=== PATIENT | male | born 1940 | race Two or more races ===

== ENCOUNTER 2021-11-21 20:40 | Observation (INO) | payer MEDICARE, SELFPAY ==
--- NOTE | ~2021-11-21 | XR_ITS ---
EXAMINATION: XR ANKLE, LEFT CLINICAL INFORMATION: Wound lateral malleolus COMPARISON: None TECHNIQUE: AP, lateral, and mortise views of the left ankle. FINDINGS: Osseous alignment is anatomic. No acute fracture is seen. There is slight contour deformity of the distal fibula suggesting sequelae of healed old injury. There is mild soft tissue swelling at the ankle. Posterior and plantar calcaneal spurs are present, and overlying soft tissue swelling is noted. Degenerative changes are seen in the tarsal bones. XR/XR ankle LT 2V IMPRESSION: Mild soft tissue swelling at the ankle. No acute osseous findings identified. Soft tissue swelling at the heel.
--- NOTE | ~2021-11-21 | XR_ITS ---
EXAMINATION: XR CHEST CLINICAL INFORMATION: Leukocytosis COMPARISON: None TECHNIQUE: Frontal view of the chest was obtained. FINDINGS: There is mild elevation of the right hemidiaphragm. No focal consolidation is seen. No evidence of pneumothorax, pleural effusion, or pulmonary edema. Cardiac size is within normal limits. Calcification is present at the aortic arch. Sternal wires, mediastinal clips, and loop recorder are noted. Degenerative changes are present in the spine and shoulders. Partially visualized right humeral hardware. XR/XR chest 1V IMPRESSION: No acute cardiopulmonary findings.
[2021-11-21 20:44] VITALS: BP 114/52; BP 122/56; PULSE 72; PULSE 80; RESP 14; TEMP 36.6; O2SAT 98; O2SAT 99; BMI 21.6
--- NOTE | 2021-11-21 20:54 | ED_ITS ---
HPI - General Adult General Chief complaint: General Medical Stated complaint: Hyperglycemia Time Seen by Provider: 11/21/21 20:54 Source: patient, EMS and RN notes reviewed Mode of arrival: EMS Limitations: no limitations History of Present Illness HPI narrative: Patient is 1 years old came from detention discharge from [facility] to [facility] yesterday patient does have history of type 2 diabetes on insulin acute on chronic diastolic heart failure, hyperlipidemia, hypertension, atherosclerotic heart disease, dementia, hypothyroidism, TIA on Eliquis and insulin Lantus 42 units in the morning and during daytime sliding scale of insulin sent here because of the high blood sugar reading since morning more than 600 was given extra dose of 12 units of insulin prior to arrival patient has is chronic wound on the left leg which is healing at this time no fever no chills Related Data Allergies Allergy/AdvReac Type Severity Reaction Status Date / Time No Known Allergies Allergy Verified 11/21/21 20:56 Review of Systems Review of Systems: Yes all other systems are reviewed and are negative [facility] Past Medical History Attestation statement: The following information was validated with the patient. Medical History (Updated 11/22/21 @ 01:23 by Jong Hoover MD) Acute on chronic diastolic (congestive) heart failure Atrial fibrillation Dementia Hyperlipidemia Hypertension Hypothyroidism Type 2 diabetes mellitus Social History Social History Advance Directives: No Advance Directives Information Provided: No Physical Exam ED Vital Signs: Vital Signs - 24 hr 11/21/21 20:44 Temperature 97.9 F Pulse Rate 72 Respiratory Rate 14 Blood Pressure 114/52 L Pulse Oximetry 99 Oxygen Delivery Method Room Air BMI result Body Mass Index 21.6 Appearance: Alert. Oriented X3. No acute distress. Eyes: PERRLA, No Nystagmus ENT: Pharynx normal. Oral Mucosa dry Neck: Normal inspection. Neck supple. CVS: Irregularly irregular heart beats. Pulses normal. Respiratory: No respiratory distress. Equal air entry bilateral, no wheezing/rales/rhonchi Abdomen: Soft and nontender. Bowel sounds are present, no mass palpable, no CVA tenderness Skin: Skin warm and dry. Normal skin color. Normal skin turgor. Extremities: No lower extremity edema. No calf tenderness Healing wound on the dorsum of the left foot and left lateral malleolus Neuro: Oriented X 3. No motor deficit. No sensory deficit.No cerebellar signs , cranial nerves II-XII intact Extrem Other: Medical Decision Making MDM Narrative Medical decision making narrative: 0100 Patient type 2 diabetic on insulin also on prednisone for giant cell arteritis for last few days since then patient has been having blood sugar out of control patient initial blood glucose was more than 600 mg patient is feeling weak and tired and thirsty and urinating a lot no abdominal pain no fever chills. Case discussed with patient's family patient had Gram-negative bacteria which grew Pseudomonas last month at [facility] and treated with IV antibiotics aztreonam liquid not find the source of bacteremia. Patient does have lactic acidosis after arrival 3.3 likely from dehydration secondary to diabetes will give cefepime 2 g IV prophylactically until we know blood culture. Plan to admit patient received IV antibiotics and IV fluids more than 30 cc/kilogram Lab Data Lab results reviewed: Yes I reviewed the patient's lab results. Result diagrams: 11/21/21 21:09 11/22/21 00:04 Labs: Lab Results 11/21/21 11/21/21 11/21/21 Range/Units 20:43 21:09 21:09 WBC 13.3 H (4.8-10.8) X10*3/uL RBC 3.74 L (4.60-5.80) X10*6/uL Hgb 10.8 L (14.0-18.0) g/dl Hct 33.3 L (42.0-52.0) % MCV 89.0 (80.0-98.0) fL MCH 28.9 (27.0-33.0) pg MCHC 32.4 (31.0-36.0) g/dl RDW 14.3 (11.0-16.0) % Plt Count 292 (160-400) X10*3/uL MPV 9.4 (9.4-12.4) fL Immature Gran % (Auto) 3.8 H (0.0-0.4) % Neut % (Auto) 80.5 H (45-73) % Lymph % (Auto) 10.8 L (20-40) % [place] % (Auto) 4.8 (2-11) % Eos % (Auto) 0.0 (0-4) % Baso % (Auto) 0.1 (0-2) % Lymph # (Auto) 1.4 (1.2-4.9) X10*3/uL [place] # (Auto) 0.6 (0.1-1.2) X10*3/uL Eos # (Auto) 0.0 (0.0-0.4) X10*3/uL Baso # (Auto) 0.0 (0.0-0.2) X10*3/uL Abs Immat Gran (auto) 0.50 H (0.00-0.03) X10*3/uL Absolute Neuts (auto) 10.7 H (2.0-8.3) x10*3/uL Absolute Nucleated RBC 0.000 (0.0-0.012) X10*3/uL Nucleated RBC % (auto) 0.0 (0.0-0.2) /100WBC Sodium 133 L (135-145) mmol/L Potassium 4.0 (3.3-5.1) mmol/L Chloride 95 L (96-108) mmol/L Carbon Dioxide 30 H (22-29) mmol/L Anion Gap 12 (12-20) BUN 27 H (9-16) mg/dL Creatinine 1.04 (0.5-1.4) mg/dL Estim Creat Clear Calc 52.0 Estimated GFR > 60 POC Glucose 524 H* (60-115) mg/dL Random Glucose 605 H* (60-115) mg/dL Lactic Acid (0.5-2.0) mmol/L Lactic Acid F/U @ 2Hr (0.5-2.0) mmol/L Calcium 7.9 L (8.4-10.2) mg/dL Total Bilirubin 0.3 (0.0-1.0) mg/dL AST 32 (5-37) U/L ALT 33 (0-40) U/L Alkaline Phosphatase 236 H (39-117) U/L Total Protein 4.7 L (6.5-8.0) g/dL Albumin 2.4 L (3.5-5.0) g/dL Urine Color Urine Appearance Urine pH (5.0-8.0) Ur Specific [place] (1.005-1.025) Urine Protein (NEG-TRACE) MG/DL Urine Glucose (UA) (NEG) MG/DL Urine Ketones (NEG) MG/DL Urine Blood (NEG) Urine Nitrite (NEG) Ur Leukocyte Esterase (NEG) Urine RBC (0) /HPF Urine WBC (0-4) /HPF Ur Squamous Epith Cells /LPF Urine Bacteria /LPF Urine Mucus /LPF Acetone, Qual (Negative) COVID-19 ([facility]) (Negative) COVID-19 Clin Com 11/21/21 11/21/21 11/21/21 Range/Units 21:09 21:09 21:09 WBC (4.8-10.8) X10*3/uL RBC (4.60-5.80) X10*6/uL Hgb (14.0-18.0) g/dl Hct (42.0-52.0) % MCV (80.0-98.0) fL MCH (27.0-33.0) pg MCHC (31.0-36.0) g/dl RDW (11.0-16.0) % Plt Count (160-400) X10*3/uL MPV (9.4-12.4) fL Immature Gran % (Auto) (0.0-0.4) % Neut % (Auto) (45-73) % Lymph % (Auto) (20-40) % [place] % (Auto) (2-11) % Eos % (Auto) (0-4) % Baso % (Auto) (0-2) % Lymph # (Auto) (1.2-4.9) X10*3/uL [place] # (Auto) (0.1-1.2) X10*3/uL Eos # (Auto) (0.0-0.4) X10*3/uL Baso # (Auto) (0.0-0.2) X10*3/uL Abs Immat Gran (auto) (0.00-0.03) X10*3/uL Absolute Neuts (auto) (2.0-8.3) x10*3/uL Absolute Nucleated RBC (0.0-0.012) X10*3/uL Nucleated RBC % (auto) (0.0-0.2) /100WBC Sodium (135-145) mmol/L Potassium (3.3-5.1) mmol/L Chloride (96-108) mmol/L Carbon Dioxide (22-29) mmol/L Anion Gap (12-20) BUN (9-16) mg/dL Creatinine (0.5-1.4) mg/dL Estim Creat Clear Calc Estimated GFR POC Glucose (60-115) mg/dL Random Glucose (60-115) mg/dL Lactic Acid 3.3 H* (0.5-2.0) mmol/L Lactic Acid F/U @ 2Hr (0.5-2.0) mmol/L Calcium (8.4-10.2) mg/dL Total Bilirubin (0.0-1.0) mg/dL AST (5-37) U/L ALT (0-40) U/L Alkaline Phosphatase (39-117) U/L Total Protein (6.5-8.0) g/dL Albumin (3.5-5.0) g/dL Urine Color Urine Appearance Urine pH (5.0-8.0) Ur Specific [place] (1.005-1.025) Urine Protein (NEG-TRACE) MG/DL Urine Glucose (UA) (NEG) MG/DL Urine Ketones (NEG) MG/DL Urine Blood (NEG) Urine Nitrite (NEG) Ur Leukocyte Esterase (NEG) Urine RBC (0) /HPF Urine WBC (0-4) /HPF Ur Squamous Epith Cells /LPF Urine Bacteria /LPF Urine Mucus /LPF Acetone, Qual Negative (Negative) COVID-19 ([place]) Negative (Negative) COVID-19 Clin Com See Note 11/21/21 11/21/21 11/21/21 Range/Units 21:35 22:53 23:53 WBC (4.8-10.8) X10*3/uL RBC (4.60-5.80) X10*6/uL Hgb (14.0-18.0) g/dl Hct (42.0-52.0) % MCV (80.0-98.0) fL MCH (27.0-33.0) pg MCHC (31.0-36.0) g/dl RDW (11.0-16.0) % Plt Count (160-400) X10*3/uL MPV (9.4-12.4) fL Immature Gran % (Auto) (0.0-0.4) % Neut % (Auto) (45-73) % Lymph % (Auto) (20-40) % [place] % (Auto) (2-11) % Eos % (Auto) (0-4) % Baso % (Auto) (0-2) % Lymph # (Auto) (1.2-4.9) X10*3/uL [place] # (Auto) (0.1-1.2) X10*3/uL Eos # (Auto) (0.0-0.4) X10*3/uL Baso # (Auto) (0.0-0.2) X10*3/uL Abs Immat Gran (auto) (0.00-0.03) X10*3/uL Absolute Neuts (auto) (2.0-8.3) x10*3/uL Absolute Nucleated RBC (0.0-0.012) X10*3/uL Nucleated RBC % (auto) (0.0-0.2) /100WBC Sodium (135-145) mmol/L Potassium (3.3-5.1) mmol/L Chloride (96-108) mmol/L Carbon Dioxide (22-29) mmol/L Anion Gap (12-20) BUN (9-16) mg/dL Creatinine (0.5-1.4) mg/dL Estim Creat Clear Calc Estimated GFR POC Glucose 465 H* 465 H* 459 H* (60-115) mg/dL Random Glucose (60-115) mg/dL Lactic Acid (0.5-2.0) mmol/L Lactic Acid F/U @ 2Hr (0.5-2.0) mmol/L Calcium (8.4-10.2) mg/dL Total Bilirubin (0.0-1.0) mg/dL AST (5-37) U/L ALT (0-40) U/L Alkaline Phosphatase (39-117) U/L Total Protein (6.5-8.0) g/dL Albumin (3.5-5.0) g/dL Urine Color Urine Appearance Urine pH (5.0-8.0) Ur Specific [place] (1.005-1.025) Urine Protein (NEG-TRACE) MG/DL Urine Glucose (UA) (NEG) MG/DL Urine Ketones (NEG) MG/DL Urine Blood (NEG) Urine Nitrite (NEG) Ur Leukocyte Esterase (NEG) Urine RBC (0) /HPF Urine WBC (0-4) /HPF Ur Squamous Epith Cells /LPF Urine Bacteria /LPF Urine Mucus /LPF Acetone, Qual (Negative) COVID-19 ([facility]) (Negative) COVID-19 Clin Com 11/22/21 11/22/21 11/22/21 Range/Units 00:04 00:04 00:04 WBC (4.8-10.8) X10*3/uL RBC (4.60-5.80) X10*6/uL Hgb (14.0-18.0) g/dl Hct (42.0-52.0) % MCV (80.0-98.0) fL MCH (27.0-33.0) pg MCHC (31.0-36.0) g/dl RDW (11.0-16.0) % Plt Count (160-400) X10*3/uL MPV (9.4-12.4) fL Immature Gran % (Auto) (0.0-0.4) % Neut % (Auto) (45-73) % Lymph % (Auto) (20-40) % [place] % (Auto) (2-11) % Eos % (Auto) (0-4) % Baso % (Auto) (0-2) % Lymph # (Auto) (1.2-4.9) X10*3/uL [place] # (Auto) (0.1-1.2) X10*3/uL Eos # (Auto) (0.0-0.4) X10*3/uL Baso # (Auto) (0.0-0.2) X10*3/uL Abs Immat Gran (auto) (0.00-0.03) X10*3/uL Absolute Neuts (auto) (2.0-8.3) x10*3/uL Absolute Nucleated RBC (0.0-0.012) X10*3/uL Nucleated RBC % (auto) (0.0-0.2) /100WBC Sodium 136 (135-145) mmol/L Potassium 4.0 (3.3-5.1) mmol/L Chloride 100 (96-108) mmol/L Carbon Dioxide 28 (22-29) mmol/L Anion Gap 12 (12-20) BUN 25 H (9-16) mg/dL Creatinine 0.87 (0.5-1.4) mg/dL Estim Creat Clear Calc 62.1 Estimated GFR > 60 POC Glucose (60-115) mg/dL Random Glucose 454 H* (60-115) mg/dL Lactic Acid (0.5-2.0) mmol/L Lactic Acid F/U @ 2Hr 2.5 H* (0.5-2.0) mmol/L Calcium 7.7 L (8.4-10.2) mg/dL Total Bilirubin (0.0-1.0) mg/dL AST (5-37) U/L ALT (0-40) U/L Alkaline Phosphatase (39-117) U/L Total Protein (6.5-8.0) g/dL Albumin (3.5-5.0) g/dL Urine Color YELLOW Urine Appearance CLEAR Urine pH 6.5 (5.0-8.0) Ur Specific [place] 1.010 (1.005-1.025) Urine Protein NEG (NEG-TRACE) MG/DL Urine Glucose (UA) >=1000 H (NEG) MG/DL Urine Ketones NEG (NEG) MG/DL Urine Blood 2+ H (NEG) Urine Nitrite NEG (NEG) Ur Leukocyte Esterase NEG (NEG) Urine RBC 0-2 (0) /HPF Urine WBC 0-2 (0-4) /HPF Ur Squamous Epith Cells TRACE /LPF Urine Bacteria NONE /LPF Urine Mucus TRACE /LPF Acetone, Qual (Negative) COVID-19 ([facility]) (Negative) COVID-19 Clin Com Critical Care Time Critical Care Time Critical Care Time: Yes Total Critical Care Time: 55 Attestation: I spent 55 minutes of critical care, with interventions, assessments, speaking to patient, consultants, and family. Discharge Plan Discharge Clinical Impression: Acute hyperglycemia, Acidosis, lactic Patient Disposition: Admitted As Inpatient
--- NOTE | 2021-11-21 20:58 | ECG_ITS ---
Test Reason : weakness Blood Pressure : / mmHG Vent. Rate : 074 BPM Atrial Rate : 000 BPM P-R Int : 000 ms QRS Dur : 078 ms QT Int : 450 ms P-R-T Axes : 000 080 089 degrees QTc Int : 499 ms Atrial fibrillation T wave abnormality, consider anterior ischemia Prolonged QT Abnormal ECG No previous ECGs available Referred By: Jong Hoover Electronically Signed By:Jose Luis Andrea
[2021-11-21] MEDS: 0.9 % Sodium Chloride 1,000 ML 999 ML IV ×2 (21:14→21:51)
[2021-11-21 21:15] LABS: MANUAL DIFF FLAG NO
[2021-11-21 21:17] LABS: Basophils Percent Auto 0.1 % (0-2); Hematocrit 33.3 % (42.0-52.0); Hemoglobin 10.8 g/dl (14.0-18.0); Imm Gran Pct Auto 3.8 % (0.0-0.4); Lymphocytes Absolute Auto 1.4 X10*3/uL (1.2-4.9); Lymphocytes Percent Auto 10.8 % (20-40); Mean Corpuscular HGB Conc 32.4 g/dl (31.0-36.0); Mean Corpuscular Hemoglobin 28.9 pg (27.0-33.0); Mean Platelet Volume 9.4 fL (9.4-12.4); Monocytes Absolute Auto 0.6 X10*3/uL (0.1-1.2); Monocytes Percent Auto 4.8 % (2-11); Neutrophils Absolute Auto 10.7 x10*3/uL (2.0-8.3); Neutrophils Percent Auto 80.5 % (45-73); Platelet Count 292 X10*3/uL (160-400); Red Blood Count 3.74 X10*6/uL (4.60-5.80); Red Cell Distribution Width 14.3 % (11.0-16.0); White Blood Count 13.3 X10*3/uL (4.8-10.8)
[2021-11-21 21:36] LABS: Lactic Acid 3.3 mmol/L (0.5-2.0)
[2021-11-21 21:37] LABS: Acetone, serum QL Negative (Negative)
[2021-11-21 21:38] LABS: Glucose, Whole Blood 524 mg/dL (60-115)
[2021-11-21 21:39] LABS: Glucose, Whole Blood 465 mg/dL (60-115)
[2021-11-21 21:43] LABS: Alanine Aminotransferase 33 U/L (0-40); Albumin Level 2.4 g/dL (3.5-5.0); Alkaline Phosphatase 236 U/L (39-117); Anion Gap 12 (12-20); Aspartate Amino Transferase 32 U/L (5-37); Bilirubin Total 0.3 mg/dL (0.0-1.0); Blood Urea Nitrogen 27 mg/dL (9-16); Calcium 7.9 mg/dL (8.4-10.2); Carbon Dioxide 30 mmol/L (22-29); Chloride 95 mmol/L (96-108); Estimated Glomerular Filt Rate > 60; Glucose Random 605 mg/dL (60-115); Sodium 133 mmol/L (135-145); Total Protein 4.7 g/dL (6.5-8.0)
[2021-11-21] MEDS: Insulin Lispro 100 UNIT/ML 3 ML VIAL 10 UNIT SUBCUT (21:47)
[2021-11-21 21:48] LABS: COVID-19 Test Negative (Negative)
[2021-11-21] MEDS: Piperacillin Sodium/Tazobactam 3.375 GM in 0.9 % Sodium Chloride 50 ML IV (22:33)
[2021-11-21 22:59] LABS: Glucose, Whole Blood 465 mg/dL (60-115)
[2021-11-21] MEDS: Insulin Lispro 100 UNIT/ML 3 ML VIAL 12 UNIT SUBCUT (23:10)
[2021-11-21 23:15] LABS: Reflex Lactate? Lactic Acid Added
[2021-11-21] MEDS: Insulin Glargine,Hum.rec.anlog 100 UNIT/ML 10 ML VIAL 20 UNIT SUBCUT (23:54)
[2021-11-22 00:20] LABS: Appearance Urine CLEAR; Color Urine YELLOW; Glucose Urine UA >=1000 MG/DL (NEG); Leukocyte Esterase Urine NEG (NEG); Nitrite Urine NEG (NEG); PH 6.5 (5.0-8.0); UACC Culture Trigger NO; Urine Blood 2+ (NEG); Urine Ketones NEG (NEG); Urine Protein NEG (NEG-TRACE)
[2021-11-22 00:34] LABS: Glucose, Whole Blood 459 mg/dL (60-115)
[2021-11-22 00:35] LABS: ~Lactic Acid-LAB USE ONLY 2.5 mmol/L (0.5-2.0)
[2021-11-22 00:36] LABS: Anion Gap 12 (12-20); Blood Urea Nitrogen 25 mg/dL (9-16); Calcium 7.7 mg/dL (8.4-10.2); Carbon Dioxide 28 mmol/L (22-29); Chloride 100 mmol/L (96-108); Creatinine Clr Calc Pharmacy 62.1; Estimated Glomerular Filt Rate > 60; Glucose Random 454 mg/dL (60-115); Sodium 136 mmol/L (135-145)
[2021-11-22] MEDS: Insulin Lispro 100 UNIT/ML 3 ML VIAL 10 UNIT SUBCUT ×2 (00:45→01:06)
[2021-11-22] MEDS: 0.9 % Sodium Chloride 1,000 ML 999 ML IV (00:46)
[2021-11-22 00:48] LABS: Mucus Urine TRACE /LPF; RBC Urine 0-2 /HPF (0); Squamous Epithelial Cell Urine TRACE /LPF; WBC Urine 0-2 /HPF (0-4)
[2021-11-22 02:09] VITALS: BP 132/71; PULSE 83; RESP 17; TEMP 36.1; O2SAT 96
[2021-11-22 02:09] LABS: Reflex Lactate? 2 Y
[2021-11-22] MEDS: cefEPime HCl 2 GM in 0.9 % Sodium Chloride 50 ML IV (02:59)
--- NOTE | 2021-11-22 03:46 | P.HPHOSP_ITS ---
History of Present Illness Date of Service: 11/22/21 Chief Complaint: Hyperglycemia 81-year-old male with a past medical history of hypertension, hyperlipidemia, diabetes, AFib on Eliquis, CHF, peripheral vascular disease, recent admission to the [facility] with Pseudomonas bacteremia; discharged to the rehab on 11/20/21; presented to the hospital from the rehab today with a chief complaint of elevated blood sugars. Patient denies any polyuria or polydipsia. Reports he is feeling hungry. Mentions that he was recently diagnosed with giant cell arteritis and has been on prednisone taper. Patient denies any chest pain palpitations lightheadedness or dizziness. Denies any fever chills cough. Denies any leg swelling. Mentions is has leg ulcer noted during the admission at the [facility] but seems to be improving. Spoke to the patient's daughter and patient's as well. Review of all other systems is negative except mentioned above ER course: Per ER team patient on presentation noted to have elevated fingerstick glucose in 500s; not in DKA; given 3 L of IV fluids and lispro as well as Lantus. Also noted to have elevated lactate. Given recent infection with Pseudomonas bacteremia patient was empirically covered with cefepime. Admitted to the hospital for further management [facility] Medical History (Updated 12/06/21 @ 21:55 by Froilan Abraham MD) Acute on chronic diastolic (congestive) heart failure Atrial fibrillation Dementia Hyperlipidemia Hypertension Hypothyroidism Type 2 diabetes mellitus Social History Patient Tobacco Use Status: Never used Tobacco Second Hand Smoke Exposure: No service: No Current occupational status: retired Meds Allergies Allergy/AdvReac Type Severity Reaction Status Date / Time Penicillins [PCN] Allergy Mild Rash Verified 11/22/21 21:21 Cephalosporins Allergy Rash Verified 11/22/21 21:24 Home Medications Medication Instructions Recorded Confirmed Last Taken Type apixaban 5 mg tablet (Eliquis) 1 tab PO BID 11/22/21 11/22/21 Unknown History citalopram 40 mg tablet 1 tab PO DAILY 11/22/21 11/22/21 11/21/21 08:00 History diltiazem HCl 180 mg 180 mg PO QAM 11/22/21 11/22/21 11/21/21 09:00 History capsule,extended release 24 hr (Cardizem CD) donepezil 5 mg tablet 1 tab PO BEDTIME 11/22/21 11/22/21 Unknown History levothyroxine 75 mcg tablet 75 mcg PO DAILY 11/22/21 11/22/21 Unknown History metoprolol succinate 25 mg 37.5 mg PO DAILY 11/22/21 11/22/21 Unknown History tablet,extended release 24 hr pravastatin 20 mg tablet 1 tab PO BEDTIME 11/22/21 11/22/21 Unknown History prednisone 20 mg tablet 40 mg PO DAILY 11/22/21 11/22/21 Unknown History Physical Exam Vital Signs and Narrative: Vital Signs: Last Vital Signs Temp 96.9 F 11/22/21 02:09 Pulse 83 11/22/21 02:09 Resp 17 11/22/21 02:09 BP 132/71 11/22/21 02:09 Pulse Ox 96 11/22/21 02:09 O2 Del Method 11/22/21 02:09 BMI result Body Mass Index 21.6 Gen: Appears be in no acute distress HEENT: NCAT, Moist mucosa. Pulmonary: Vesicular breath sounds, fair air entry CVS: Normal S1-S2 Abdomen: BS+, Soft, Nontender Extremities: Warm well perfused; foot ulcer has dressing in pairs. Picture shown below Neuro: Alert and awake. Grossly nonfocal Results Labs CBC and Chem 7: 11/22/21 04:27 11/24/21 07:53 Labs: Laboratory Results - last 24 hr 11/21/21 11/21/21 11/21/21 20:43 21:09 21:09 MCV 89.0 MCH 28.9 MCHC 32.4 RDW 14.3 Plt Count 292 MPV 9.4 Immature Gran % (Auto) 3.8 H Neut % (Auto) 80.5 H Lymph % (Auto) 10.8 L [place] % (Auto) 4.8 Eos % (Auto) 0.0 Baso % (Auto) 0.1 Lymph # (Auto) 1.4 [place] # (Auto) 0.6 Eos # (Auto) 0.0 Baso # (Auto) 0.0 Abs Immat Gran (auto) 0.50 H Absolute Neuts (auto) 10.7 H Absolute Nucleated RBC 0.000 Nucleated RBC % (auto) 0.0 Anion Gap 12 Estim Creat Clear Calc 52.0 Estimated GFR > 60 POC Glucose 524 H* Random Glucose 605 H* Lactic Acid Lactic Acid F/U @ 2Hr Calcium 7.9 L Total Bilirubin 0.3 AST 32 ALT 33 Alkaline Phosphatase 236 H Total Protein 4.7 L Albumin 2.4 L Urine Color Urine Appearance Urine pH Ur Specific [place] Urine Protein Urine Glucose (UA) Urine Ketones Urine Blood Urine Nitrite Ur Leukocyte Esterase Urine RBC Urine WBC Ur Squamous Epith Cells Urine Bacteria Urine Mucus Acetone, Qual COVID-19 ([facility]) COVID-19 Clin Com 11/21/21 11/21/21 11/21/21 21:09 21:09 21:09 MCV MCH MCHC RDW Plt Count MPV Immature Gran % (Auto) Neut % (Auto) Lymph % (Auto) [place] % (Auto) Eos % (Auto) Baso % (Auto) Lymph # (Auto) [place] # (Auto) Eos # (Auto) Baso # (Auto) Abs Immat Gran (auto) Absolute Neuts (auto) Absolute Nucleated RBC Nucleated RBC % (auto) Anion Gap Estim Creat Clear Calc Estimated GFR POC Glucose Random Glucose Lactic Acid 3.3 H* Lactic Acid F/U @ 2Hr Calcium Total Bilirubin AST ALT Alkaline Phosphatase Total Protein Albumin Urine Color Urine Appearance Urine pH Ur Specific [place] Urine Protein Urine Glucose (UA) Urine Ketones Urine Blood Urine Nitrite Ur Leukocyte Esterase Urine RBC Urine WBC Ur Squamous Epith Cells Urine Bacteria Urine Mucus Acetone, Qual Negative COVID-19 ([place]) Negative COVID-19 Clin Com See Note 11/21/21 11/21/21 11/21/21 21:35 22:53 23:53 MCV MCH MCHC RDW Plt Count MPV Immature Gran % (Auto) Neut % (Auto) Lymph % (Auto) [place] % (Auto) Eos % (Auto) Baso % (Auto) Lymph # (Auto) [place] # (Auto) Eos # (Auto) Baso # (Auto) Abs Immat Gran (auto) Absolute Neuts (auto) Absolute Nucleated RBC Nucleated RBC % (auto) Anion Gap Estim Creat Clear Calc Estimated GFR POC Glucose 465 H* 465 H* 459 H* Random Glucose Lactic Acid Lactic Acid F/U @ 2Hr Calcium Total Bilirubin AST ALT Alkaline Phosphatase Total Protein Albumin Urine Color Urine Appearance Urine pH Ur Specific [place] Urine Protein Urine Glucose (UA) Urine Ketones Urine Blood Urine Nitrite Ur Leukocyte Esterase Urine RBC Urine WBC Ur Squamous Epith Cells Urine Bacteria Urine Mucus Acetone, Qual COVID-19 ([place]) COVID-19 Clin Com 11/22/21 11/22/21 11/22/21 00:04 00:04 00:04 MCV MCH MCHC RDW Plt Count MPV Immature Gran % (Auto) Neut % (Auto) Lymph % (Auto) [place] % (Auto) Eos % (Auto) Baso % (Auto) Lymph # (Auto) [place] # (Auto) Eos # (Auto) Baso # (Auto) Abs Immat Gran (auto) Absolute Neuts (auto) Absolute Nucleated RBC Nucleated RBC % (auto) Anion Gap 12 Estim Creat Clear Calc 62.1 Estimated GFR > 60 POC Glucose Random Glucose 454 H* Lactic Acid Lactic Acid F/U @ 2Hr 2.5 H* Calcium 7.7 L Total Bilirubin AST ALT Alkaline Phosphatase Total Protein Albumin Urine Color YELLOW Urine Appearance CLEAR Urine pH 6.5 Ur Specific [place] 1.010 Urine Protein NEG Urine Glucose (UA) >=1000 H Urine Ketones NEG Urine Blood 2+ H Urine Nitrite NEG Ur Leukocyte Esterase NEG Urine RBC 0-2 Urine WBC 0-2 Ur Squamous Epith Cells TRACE Urine Bacteria NONE Urine Mucus TRACE Acetone, Qual COVID-19 ([place]) COVID-19 Clin Com Imaging Radiologist's Impressions: Impressions Ankle X-Ray 11/21/21 22:54 IMPRESSION: Mild soft tissue swelling at the ankle. No acute osseous findings identified. Soft tissue swelling at the heel. Chest X-Ray 11/22/21 01:33 IMPRESSION: No acute cardiopulmonary findings. Assessment and Plan (1) Hyperglycemia: Status: Acute Plan 81-year-old male with a past medical history of hypertension, hyperlipidemia, di abetes, AFib on Eliquis, CHF, peripheral vascular disease, recent admission to the [facility] with Pseudomonas bacteremia; discharged to the rehab on 11/20/21; presented to the hospital from the rehab today with a chief complaint of elevated blood sugars. Diabetes/Hyperglycemia: Patient blood sugar on presentation was 605. Not in DKA. Received 3 L of IV fl uids and 30 units of lispro along with 20 units of Lantus. Patient fingerstick glucose improved to 4 0s. Will keep the patient on Lantus 40 units plus insulin sliding scale. Monitor fingerstick glucose and adjust insulins as needed. Recent Pseudomonas Bacteremia/Foot Ulcer: Patient almost finished 14 days of antibiotics. Discharged yesterday to [facility] with 2 more days of Levaquin. Foot ulcer is new after admission to [facility]. but currently has lactic acidosis and mild leukocytosis; c/w Empiric Cefepime untill repeat cultures are back. Wound care consult Gain cell arteritis: pt on long Prednisone taper. On prednisone 40mg currently. Follows with Neurology and toolroom attendant. Patient has been on the prednisone since October. Currently patient having hyperglycemia/increased appetite/recent infection-will defer to the day team to touch base with the patient's toolroom attendant to consider tapering prednisone more quickly, if appropriate. PVD: left leg angiogram was done at [facility] on last thursday. Requested Records. pt on eliquis. Afib: c/w metoprolol/Diltiazem/eliquis CHF: recent Echo- Grade 1 diastolic dysfunction, EF 55%; patient was given 3 L of normal saline in the ER secondary to hyperglycemia. Per family patient was not on a Lasix prior to the admission to the [facility]. In the [facility] patient had AFib with RVR as well as acute CHF exacerbation with peripheral edema. Patient received IV Lasix and subsequently transitioned to p.o. Lasix. Currently patient appears to be euvolemic. Will give the patient on Lasix p.r.n. DVT prophylaxis: Patient on Eliquis Code status: Full code. pt has MOLST form. Spoke to the patient's daughters Elisha (hospitalist) [phone]. Quality Stroke Does the patient have a stroke diagnosis?: No VTE Prior VTE?: No VTE Risk Level:: Medical - moderate - high VTE Device Contraindication: Treatment Not Indicated VTE Drug Contraindication: N/A - Med Ordered
[2021-11-22 04:33] LABS: MANUAL DIFF FLAG NO
[2021-11-22 04:35] LABS: Basophils Percent Auto 0.1 % (0-2); Eosinophils Percent Auto 0.1 % (0-4); Hemoglobin 10.9 g/dl (14.0-18.0); Imm Gran Abs Auto 0.68 X10*3/uL (0.00-0.03); Imm Gran Pct Auto 4.1 % (0.0-0.4); Lymphocytes Absolute Auto 2.2 X10*3/uL (1.2-4.9); Lymphocytes Percent Auto 13.2 % (20-40); Mean Corpuscular HGB Conc 32.1 g/dl (31.0-36.0); Mean Corpuscular Hemoglobin 29.1 pg (27.0-33.0); Mean Corpuscular Volume 90.9 fL (80.0-98.0); Mean Platelet Volume 9.1 fL (9.4-12.4); Monocytes Absolute Auto 1.1 X10*3/uL (0.1-1.2); Monocytes Percent Auto 6.4 % (2-11); Neutrophils Absolute Auto 12.7 x10*3/uL (2.0-8.3); Neutrophils Percent Auto 76.1 % (45-73); Platelet Count 311 X10*3/uL (160-400); Red Blood Count 3.74 X10*6/uL (4.60-5.80); Red Cell Distribution Width 14.4 % (11.0-16.0); White Blood Count 16.6 X10*3/uL (4.8-10.8)
[2021-11-22 04:44] LABS: ~Lactic Acid-LAB USE ONLY 1.9 mmol/L (0.5-2.0)
[2021-11-22 04:55] LABS: Anion Gap 9 (12-20); Blood Urea Nitrogen 23 mg/dL (9-16); Calcium 7.7 mg/dL (8.4-10.2); Carbon Dioxide 31 mmol/L (22-29); Chloride 102 mmol/L (96-108); Creatinine Clr Calc Pharmacy 80.7; Estimated Glomerular Filt Rate > 60; Glucose Random 111 mg/dL (60-115); Potassium 4.1 mmol/L (3.3-5.1); Sodium 138 mmol/L (135-145)
[2021-11-22 05:10] LABS: Glucose, Whole Blood 403 mg/dL (60-115)
[2021-11-22 05:10] LABS: Glucose, Whole Blood 280 mg/dL (60-115)
[2021-11-22 05:10] LABS: Glucose, Whole Blood 231 mg/dL (60-115)
[2021-11-22 05:10] LABS: Glucose, Whole Blood 199 mg/dL (60-115)
[2021-11-22 05:10] LABS: Glucose, Whole Blood 417 mg/dL (60-115)
[2021-11-22 05:10] LABS: Glucose, Whole Blood 190 mg/dL (60-115)
[2021-11-22 06:29] VITALS: BP 134/55; PULSE 85; RESP 14; TEMP 36.8; O2SAT 97
[2021-11-22 07:30] LABS: Glucose, Whole Blood 146 mg/dL (60-115)
[2021-11-22 07:30] LABS: Glucose, Whole Blood 161 mg/dL (60-115)
--- NOTE | 2021-11-22 08:08 | PHA.MEDREC ---
Pharmacy Consult ? Medication Reconciliation Pharmacy has completed the medication reconciliation.
[2021-11-22] MEDS: predniSONE 20 MG TABLET 40 MG PO (09:32)
[2021-11-22] MEDS: Metoprolol Succinate ER 12.5 MG HALFTAB.ER.24H PO (09:32)
[2021-11-22] MEDS: dilTIAZem HCL CD 180 MG CAP.ER.24H PO (09:32)
[2021-11-22] MEDS: Levothyroxine Sodium 75 MCG TABLET PO (09:32)
[2021-11-22] MEDS: 0.9 % Sodium Chloride Flush 3 ML SYRINGE IVFLUSH ×2 (09:32→17:17)
[2021-11-22] MEDS: Metoprolol Succinate ER 25 MG TAB.ER.24H PO (09:32)
[2021-11-22] MEDS: Escitalopram Oxalate 20 MG TABLET PO (09:32)
--- NOTE | 2021-11-22 09:32 | MHC.CM.PN ---
Patient has Dementia; CM spoke with /HCP/Suze @ [phone]. [place] [facility] [facility] and the goal is for him to return there when medically stable. CM has initiated and will follow for dc planning. Patient lives in 2 story house with his and he uses a cane for outdoor travel. Patient gilbert received Pfizer/Covid vax X4 and his PCP is DR. Rocha. [facility] staff communicate with Patient's Daughter/Physician/Gildardo @ [phone] first and her second.
[2021-11-22] MEDS: Donepezil HCl 5 MG TABLET PO (09:33)
[2021-11-22] MEDS: Apixaban 5 MG TABLET PO ×2 (09:33→21:13)
[2021-11-22 09:36] VITALS: BP 142/58; PULSE 97; RESP 16; O2SAT 98
[2021-11-22 13:24] LABS: Glucose, Whole Blood 93 mg/dL (60-115)
--- NOTE | 2021-11-22 13:34 | MHC.CM.PN ---
CM spoke extensively with Patient's /Suze at [phone] and Daughter/Sonaly @ [phone] regarding Patient's OBSERVATION status(Original is being mailed to [facility] and a copy will be placed on the chart). The goal is for Patient to return to [facility] on 11/25/2021, pending PT eval and [facility] authorization. CM will follow.
[2021-11-22] MEDS: cefEPime HCl 1 GM in 0.9 % Sodium Chloride 50 ML IV ×2 (17:17→21:54)
[2021-11-22 19:11] LABS: Glucose, Whole Blood 187 mg/dL (60-115)
[2021-11-22] MEDS: Insulin Lispro 100 UNIT/ML 3 ML VIAL SUBCUT ×2 (19:37→21:14)
[2021-11-22 19:38] VITALS: BP 149/74; PULSE 90; RESP 13
--- NOTE | 2021-11-22 19:39 | PC.NURSE ---
pt a&ox3, vss - pt remains hypertensive, medicated per provider order, denies pain at this time.
[2021-11-22 21:04] LABS: Glucose, Whole Blood 251 mg/dL (60-115)
[2021-11-22] MEDS: Pravastatin Sodium 20 MG TABLET PO (21:13)
[2021-11-22 21:27] VITALS: BMI 21.6
[2021-11-22 22:07] VITALS: BP 136/75; PULSE 85; RESP 18; TEMP 36.4; O2SAT 93
[2021-11-23] VITALS (7 sets, daily range): BP systolic 106–167; BP diastolic 56–89; PULSE 86–103; RESP 16–18; TEMP 36–36.9; O2SAT 96–99
[2021-11-23] MEDS: Levothyroxine Sodium 75 MCG TABLET PO (05:49)
[2021-11-23] MEDS: cefEPime HCl 1 GM in 0.9 % Sodium Chloride 50 ML IV ×3 (05:49→20:16)
[2021-11-23 08:08] LABS: Glucose, Whole Blood 86 mg/dL (60-115)
[2021-11-23 09:22] LABS: Glucose, Whole Blood 107 mg/dL (60-115)
[2021-11-23] MEDS: Escitalopram Oxalate 20 MG TABLET PO (10:52)
[2021-11-23] MEDS: predniSONE 20 MG TABLET 40 MG PO (10:52)
[2021-11-23] MEDS: Metoprolol Succinate ER 12.5 MG HALFTAB.ER.24H PO (10:52)
[2021-11-23] MEDS: Donepezil HCl 5 MG TABLET PO (10:52)
[2021-11-23] MEDS: 0.9 % Sodium Chloride Flush 3 ML SYRINGE IVFLUSH ×3 (10:53→20:44)
[2021-11-23] MEDS: Metoprolol Succinate ER 25 MG TAB.ER.24H PO (10:53)
[2021-11-23] MEDS: Apixaban 5 MG TABLET PO ×2 (10:53→20:17)
[2021-11-23] MEDS: dilTIAZem HCL CD 180 MG CAP.ER.24H PO (10:53)
[2021-11-23] MEDS: Insulin Glargine,Hum.rec.anlog 100 UNIT/ML 10 ML VIAL 25 UNIT SUBCUT (10:55)
[2021-11-23] MEDS: Insulin Lispro 100 UNIT/ML 3 ML VIAL SUBCUT ×3 (11:49→20:35)
[2021-11-23 11:54] LABS: Glucose, Whole Blood 235 mg/dL (60-115)
--- NOTE | 2021-11-23 12:05 | P.PNIM_ITS ---
Subjective Subjective Date of Service: 11/24/21 Interval History: Resting comfortably offers no acute complaints head in an infant for night blood sugars stable, tolerating diet no nausea no vomiting denies leg discomfort, denies fever chills, no nausea, no vomiting no diarrhea. Review of Systems Review of Systems: Yes all other systems are reviewed and are negative Physical Exam Vital Signs: Vital Signs: Last Vital Signs Temp 97.6 F 11/23/21 11:21 Pulse 89 11/23/21 11:21 Resp 18 11/23/21 11:21 BP 112/67 11/23/21 11:21 Pulse Ox 97 11/23/21 11:21 O2 Del Method 11/23/21 11:21 BMI result Body Mass Index 21.6 Const: Other: General awake alert x3, in no acute distress. Neck no JVD. CVS regular rate rhythm, Respiratory lungs clear to auscultation, no respiratory distress, no wheeze, no rhonchi. Gastrointestinal abdomen soft, nontender, bowel sounds audible, no guarding , no rigidity. Extremities left leg superficial abrasions dorsum of foot medially, open wound lateral margin of left leg with no surrounding redness or tenderness Neuro nonfocal . Skin no rash Psych appropriate affect Objective Data Active Medications Acetaminophen (Acetaminophen 325 Mg Tablet) 650 mg PO Q6H PRN PRN Reason: Pain, Mild (Pain Scale 1-3) Apixaban (Apixaban 5 Mg Tablet) 5 mg PO BID [facility] Last Admin: 11/23/21 10:53 Dose: 5 mg Documented By: CASEY Dextrose (Dextrose 50 % 25 Gm/50 Ml Syringe) 25 gm IVPUSH Q15M PRN; Protocol PRN Reason: per Hypoglycemia Standing Ord. Diltiazem HCl (Diltiazem Hcl Cd 180 Mg Cap.Er.24h) 180 mg PO DAILY [facility]; Protocol Last Admin: 11/23/21 10:53 Dose: 180 mg Documented By: CASEY Donepezil HCl (Donepezil Hcl 5 Mg Tablet) 5 mg PO DAILY [facility] Last Admin: 11/23/21 10:52 Dose: 5 mg Documented By: CASEY Escitalopram Oxalate (Escitalopram Oxalate 20 Mg Tablet) 20 mg PO DAILY [facility] Last Admin: 11/23/21 10:52 Dose: 20 mg Documented By: CASEY Glucose (Glucose Gel 15 Gm Gel..Gram.) 15 gm PO Q15M PRN; Protocol PRN Reason: per Hypoglycemia Standing Ord. Hydromorphone HCl (Hydromorphone Hcl 1 Mg/Ml Syringe) 0.5 mg IVPUSH Q4H PRN; Protocol PRN Reason: Pain, Severe (Pain Scale 7-10) Cefepime HCl 1 gm/ Sodium (Chloride) 50 mls @ 100 mls/hr IV Q8H [facility] Last Infusion: 11/23/21 06:53 Dose: 100 mls/hr Documented By: KUMAR Insulin Glargine (Insulin Glargine,Hum.Rec.Anlog 100 Unit/Ml 10 Ml Vial) 25 unit SUBCUT DAILY [facility] Last Admin: 11/23/21 10:55 Dose: 25 unit Documented By: CASEY Insulin Human Lispro (Insulin Lispro 100 Unit/Ml 3 Ml Vial) 0 unit SUBCUT QIDACHS [facility]; Protocol Last Admin: 11/23/21 11:49 Dose: 4 unit Documented By: CASEY Levothyroxine Sodium (Levothyroxine Sodium 75 Mcg Tablet) 75 mcg PO DAILY@0600 [facility] Last Admin: 11/23/21 05:49 Dose: 75 mcg Documented By: KUMAR Melatonin (Melatonin 3 Mg Tablet) 6 mg PO BEDTIME PRN PRN Reason: Insomnia Metoprolol Succinate (Metoprolol Succinate Er 25 Mg Tab.Er.24h) 25 mg PO DAILY [facility]; Protocol Last Admin: 11/23/21 10:53 Dose: 25 mg Documented By: CASEY Metoprolol Succinate (Metoprolol Succinate Er 12.5 Mg Halftab.Er.24h) 12.5 mg PO DAILY [facility]; Protocol Last Admin: 11/23/21 10:52 Dose: 12.5 mg Documented By: CASEY Pravastatin Sodium (Pravastatin Sodium 20 Mg Tablet) 20 mg PO BEDTIME [facility] Last Admin: 11/22/21 21:13 Dose: 20 mg Documented By: KUMAR Prednisone (Prednisone 20 Mg Tablet) 40 mg PO DAILY [facility] Last Admin: 11/23/21 10:52 Dose: 40 mg Documented By: CASEY Senna (Sennosides 8.6 Mg Tablet) 17.2 mg PO BEDTIME PRN PRN Reason: Constipation Sodium Chloride (0.9 % Sodium Chloride Flush 3 Ml Syringe) 3 ml IVFLUSH QSHIFT [facility] Last Admin: 11/23/21 10:53 Dose: 3 ml Documented By: CASEY Labs CBC & Chem 7: 11/22/21 04:27 11/24/21 07:53 Labs: Laboratory Results - last 24 hr 11/22/21 11/22/21 11/22/21 13:20 19:07 20:58 POC Glucose 93 187 H 251 H 11/23/21 11/23/21 11/23/21 07:37 09:17 11:25 POC Glucose 86 107 235 H Microbiology Microbiology Results: Microbiology 11/21/21 22:15 Blood Culture - Preliminary Blood - Venous No growth after 24 hours. 11/21/21 21:45 Blood Culture - Preliminary Blood - Venous No growth after 24 hours. Assessment and Plan (1) Acute hyperglycemia: Status: Acute (2) Acidosis, lactic: Status: Acute Plan 81-year-old male with a past medical history of hypertension, hyperlipidemia, diabetes, AFib on Eliquis, CHF, peripheral vascular disease, recent admission to the [facility] with Pseudomonas bacteremia; discharged to the rehab on 11/20/21; presented to the hospital from the rehab today with a chief complaint of elevated blood sugars.? Hyperglycemia with history of diabetes mellitus on insulin Admitted with blood sugars of 605 on admission, no evidence of DKA or electrolyte abnormality, hyperglycemia likely due to prednisone 40 mg daily and underlying recent infection No new infection noted, patient treated aggressively in the ER with short-acting and long-acting insulin blood sugars now stable Will continue Lantus at a.m. will lower dose it since noted to have low blood pressures at am and continue insulin sliding scale Will adjust insulin sliding scale upon discharge, continue diabetic diet Recent Pseudomonas Bacteremia/Foot Ulcer: Patient finished 8 day course of antibiotics at [facility] and was not discharged on further antibiotics Foot ulcer is well healed Was Noted to have mild lactic acidosis and leukocytosis likely due to dehydration and use of steroid Blood cultures x2 negative, no fevers was placed on empiric cefepime day 2 will DC further antibiotic Continue dry dressing left foot/recommend outpatient follow-up with Podiatry for treatment of left foot callus Gain cell arteritis:? On tapering dose of prednisone currently on 40 mg by mouth daily, spoke with family and recommend close outpatient follow-up with Rheumatology as outpatient PVD:?left leg angiogram was done at [facility] underwent angioplasty of left superficial femoral and left common iliac artery on 11/18 continue on eliquis. Afib:?c/w metoprolol/Diltiazem/eliquis History of diastolic CHF: No acute exacerbation?recent Echo- Grade 1 diastolic dysfunction, EF 55% Per family patient was not on a Lasix prior to the admission to the [facility]. In the [facility] patient had AFib with RVR likely causing acute CHF exacerbation .? Patient received IV Lasix and subsequently transitioned to p.o. Lasix. Currently patient appears to be euvolemic. Will hold?Lasix DVT prophylaxis:? on Eliquis Code status: Full code. pt has MOLST form. patient's daughters Elisha (hospitalist) [phone]. Patient need continued inpatient hospitalization since need safe discharge back to rehab, need PT eval, insurance authorization, public health social worker arranging for discharge. Quality Stroke Does the patient have a stroke diagnosis?: No VTE Prior VTE?: No VTE Risk Level:: Medical - moderate - high VTE Device Contraindication: Treatment Not Indicated VTE Drug Contraindication: N/A - Med Ordered
[2021-11-23 15:43] LABS: Glucose, Whole Blood 213 mg/dL (60-115)
[2021-11-23] MEDS: Pravastatin Sodium 20 MG TABLET PO (20:17)
[2021-11-23 20:26] LABS: Glucose, Whole Blood 302 mg/dL (60-115)
[2021-11-24 04:00] VITALS: BP 134/78; PULSE 97; RESP 18; TEMP 35.9; O2SAT 99
[2021-11-24] MEDS: cefEPime HCl 1 GM in 0.9 % Sodium Chloride 50 ML IV (05:18)
[2021-11-24] MEDS: Levothyroxine Sodium 75 MCG TABLET PO (05:18)
[2021-11-24 07:22] LABS: Glucose, Whole Blood 33 mg/dL (60-115)
[2021-11-24] MEDS: Glucose Gel 15 GM GEL..GRAM. PO ×2 (07:46→07:47)
[2021-11-24 08:00] VITALS: BP 120/65; PULSE 93; RESP 16; TEMP 36.2; O2SAT 95
[2021-11-24] MEDS: Apixaban 5 MG TABLET PO ×2 (08:06→20:28)
[2021-11-24] MEDS: Metoprolol Succinate ER 12.5 MG HALFTAB.ER.24H PO (08:06)
[2021-11-24] MEDS: Donepezil HCl 5 MG TABLET PO (08:06)
[2021-11-24] MEDS: dilTIAZem HCL CD 180 MG CAP.ER.24H PO (08:06)
[2021-11-24] MEDS: Escitalopram Oxalate 20 MG TABLET PO (08:06)
[2021-11-24 08:07] LABS: Glucose, Whole Blood 66 mg/dL (60-115)
[2021-11-24] MEDS: Metoprolol Succinate ER 25 MG TAB.ER.24H PO (08:07)
[2021-11-24] MEDS: predniSONE 20 MG TABLET 40 MG PO (08:07)
[2021-11-24] MEDS: 0.9 % Sodium Chloride Flush 3 ML SYRINGE IVFLUSH ×3 (08:07→20:37)
[2021-11-24 08:27] LABS: Glucose Random 80 mg/dL (60-115)
[2021-11-24 08:48] LABS: Glucose, Whole Blood 69 mg/dL (60-115)
[2021-11-24 11:03] LABS: Glucose, Whole Blood 268 mg/dL (60-115)
[2021-11-24 11:57] VITALS: BP 117/65; PULSE 70; RESP 16; TEMP 36.2; O2SAT 98
[2021-11-24] MEDS: Insulin Lispro 100 UNIT/ML 3 ML VIAL SUBCUT ×3 (12:08→20:28)
--- NOTE | 2021-11-24 12:18 | MHC.CM.PN ---
[facility]HA CID UPDATED. PLAN IS RETURN TO SNF IF THEY ARE ABLE TO OFFER A BED AT NE. CASE MANAGEMENT CONTINUING TO FOLLOW
--- NOTE | 2021-11-24 14:18 | P.PNIM_ITS ---
Subjective Subjective Date of Service: 11/24/21 Interval History: Noted to have low blood sugars this morning, patient treated with glucose gel/applesauce held am lantus Blood sugar improved, at present patient denies headache,lightheadedness sweating, no chest pain, no shortness of breath, no palpitations, no fever chills, tolerating diet no nausea vomiting no diarrhea no urinary urgency or frequency, left leg swelling has resolved. Review of Systems Review of Systems: Yes all other systems are reviewed and are negative Physical Exam Vital Signs: Vital Signs: Last Vital Signs Temp 97.1 F 11/24/21 11:57 Pulse 70 11/24/21 11:57 Resp 16 11/24/21 11:57 BP 117/65 11/24/21 11:57 Pulse Ox 98 11/24/21 11:57 O2 Del Method 11/24/21 11:57 BMI result Body Mass Index 21.6 Const: Other: General awake alert x3, in no acute distress.? Neck? no JVD. CVS? regular rate rhythm, Respiratory lungs clear to auscultation, no respiratory distress, no wheeze, no rhonchi. Gastrointestinal abdomen soft, nontender, bowel sounds audible, no guarding , no rigidity. Extremities left leg superficial abrasions dorsum of foot medially, wound lateral margin of left leg well-healed with no surrounding redness or tenderness, callus left foot, no swelling, no redness Neuro nonfocal . Skin no rash Psych appropriate affect Objective Data Active Medications Acetaminophen (Acetaminophen 325 Mg Tablet) 650 mg PO Q6H PRN PRN Reason: Pain, Mild (Pain Scale 1-3) Apixaban (Apixaban 5 Mg Tablet) 5 mg PO BID [facility] Last Admin: 11/24/21 08:06 Dose: 5 mg Documented By: CASEY Dextrose (Dextrose 50 % 25 Gm/50 Ml Syringe) 25 gm IVPUSH Q15M PRN; Protocol PRN Reason: per Hypoglycemia Standing Ord. Diltiazem HCl (Diltiazem Hcl Cd 180 Mg Cap.Er.24h) 180 mg PO DAILY [facility]; Protoc ol Last Admin: 11/24/21 08:06 Dose: 180 mg Documented By: CASEY Donepezil HCl (Donepezil Hcl 5 Mg Tablet) 5 mg PO DAILY [facility] Last Admin: 11/24/21 08:06 Dose: 5 mg Documented By: CASEY Escitalopram Oxalate (Escitalopram Oxalate 20 Mg Tablet) 20 mg PO DAILY [facility] Last Admin: 11/24/21 08:06 Dose: 20 mg Documented By: CASEY Glucose (Glucose Gel 15 Gm Gel..Gram.) 15 gm PO Q15M PRN; Protocol PRN Reason: per Hypoglycemia Standing Ord. Last Admin: 11/24/21 07:47 Dose: 15 gm Documented By: CASEY Hydromorphone HCl (Hydromorphone Hcl 1 Mg/Ml Syringe) 0.5 mg IVPUSH Q4H PRN; Protocol PRN Reason: Pain, Severe (Pain Scale 7-10) Insulin Glargine (Insulin Glargine,Hum.Rec.Anlog 100 Unit/Ml 10 Ml Vial) 25 unit SUBCUT DAILY [facility] Last Admin: 11/24/21 07:53 Dose: Not Given Documented By: CASEY Non-Admin Reason: hold per Insulin Glargine (Insulin Glargine,Hum.Rec.Anlog 100 Unit/Ml 10 Ml Vial) 12 unit SUBCUT ONCE ONE Stop: 11/24/21 14:16 Insulin Human Lispro (Insulin Lispro 100 Unit/Ml 3 Ml Vial) 0 unit SUBCUT QIDACHS [facility]; Protocol Last Admin: 11/24/21 12:08 Dose: 8 unit Documented By: CASEY Levothyroxine Sodium (Levothyroxine Sodium 75 Mcg Tablet) 75 mcg PO DAILY@0600 [facility] Last Admin: 11/24/21 05:18 Dose: 75 mcg Documented By: KUMAR Melatonin (Melatonin 3 Mg Tablet) 6 mg PO BEDTIME PRN PRN Reason: Insomnia Metoprolol Succinate (Metoprolol Succinate Er 25 Mg Tab.Er.24h) 25 mg PO DAILY [facility]; Protocol Last Admin: 11/24/21 08:07 Dose: 25 mg Documented By: CASEY Metoprolol Succinate (Metoprolol Succinate Er 12.5 Mg Halftab.Er.24h) 12.5 mg PO DAILY [facility]; Protocol Last Admin: 11/24/21 08:06 Dose: 12.5 mg Documented By: CASEY Pravastatin Sodium (Pravastatin Sodium 20 Mg Tablet) 20 mg PO BEDTIME [facility] Last Admin: 11/23/21 20:17 Dose: 20 mg Documented By: KUMAR Prednisone (Prednisone 20 Mg Tablet) 40 mg PO DAILY [facility] Last Admin: 11/24/21 08:07 Dose: 40 mg Documented By: CASEY Senna (Sennosides 8.6 Mg Tablet) 17.2 mg PO BEDTIME PRN PRN Reason: Constipation Sodium Chloride (0.9 % Sodium Chloride Flush 3 Ml Syringe) 3 ml IVFLUSH QSHIFT [facility] Last Admin: 11/24/21 08:07 Dose: 3 ml Documented By: CASEY Labs CBC & Chem 7: 11/22/21 04:27 11/24/21 07:53 Labs: Laboratory Results - last 24 hr 11/23/21 11/23/21 11/24/21 15:16 19:23 07:16 POC Glucose 213 H 302 H 33 L* Random Glucose 11/24/21 11/24/21 11/24/21 07:53 08:02 08:29 POC Glucose 66 69 Random Glucose 80 11/24/21 10:59 POC Glucose 268 H Random Glucose Microbiology Microbiology Results: Microbiology 11/21/21 22:15 Blood Culture - Preliminary Blood - Venous No growth after 48 hours. 11/21/21 21:45 Blood Culture - Preliminary Blood - Venous No growth after 48 hours. Assessment and Plan (1) Acute hyperglycemia: Status: Acute (2) Acidosis, lactic: Status: Acute Plan 81-year-old male with a past medical history of hypertension, hyperlipidemia, diabetes, AFib on Eliquis, CHF, peripheral vascular disease, recent admission to the [facility] with Pseudomonas bacteremia; discharged to the rehab on 11/20/21; presented to the hospital from the rehab today with a chief complaint of elevated blood sugars.? Hyperglycemia with history of diabetes mellitus on insulin Admitted with blood sugars of 605 on admission, no evidence of DKA or electrolyte abnormality, hyperglycemia likely due to prednisone 40 mg daily and underlying recent infection This morning noted to have hypoglycemia blood sugar of 33 despite good by mouth intake no nausea vomiting /blood sugars subsequently improved currently greater than 200 Will increase calories to 2200, add Glucerna, likely due to decrease total calorie intake, add snack at bedtime Hold Lantus this morning continue sliding scale No new infection Recent Pseudomonas Bacteremia/Foot Ulcer: Patient finished 8 day course of antibiotics at [facility] and was not discharged on further antibiotics Foot ulcer is well healed Was Noted to have mild lactic acidosis and leukocytosis likely due to dehydration and use of steroid Blood cultures x2 negative, no fevers was placed on empiric cefepime that is now discontinued Continue dry dressing left foot/recommend outpatient follow-up with Podiatry for treatment of left foot callus Gain cell arteritis:? On tapering dose of prednisone currently on 40 mg by mouth daily, spoke with family and recommend close outpatient follow-up with Rheumatology as outpatient PVD:?left leg angiogram was done at [facility] underwent angioplasty of left superficial femoral and left common iliac artery on 11/18 continue on eliquis. Afib:?c/w metoprolol/Diltiazem/eliquis History of diastolic CHF: No acute exacerbation?recent Echo- Grade 1 diastolic dysfunction, EF 55% Per family patient was not on a Lasix prior to the admission to the [facility]. In the [facility] patient had AFib with RVR likely causing acute CHF exacerbation .? Patient received IV Lasix and subsequently transitioned to p.o. Lasix. Currently patient appears to be euvolemic. Will hold?Lasix DVT prophylaxis:? on Eliquis Code status: Full code. pt has MOLST form. patient's daughters Elisha (hospitalist) [phone]. Patient need continued inpatient hospitalization since need safe discharge back to rehab, need PT eval, insurance authorization, high school social studies teacher arranging for discharge. Episode of hypoglycemia need close blood sugar monitoring. Quality Stroke Does the patient have a stroke diagnosis?: No VTE Prior VTE?: No VTE Risk Level:: Medical - moderate - high VTE Device Contraindication: Treatment Not Indicated VTE Drug Contraindication: N/A - Med Ordered
[2021-11-24] MEDS: Insulin Glargine,Hum.rec.anlog 100 UNIT/ML 10 ML VIAL 12 UNIT SUBCUT (14:33)
[2021-11-24 16:33] VITALS: BP 129/60; PULSE 86; RESP 16; TEMP 36.5; O2SAT 98
[2021-11-24 16:51] LABS: Glucose, Whole Blood 372 mg/dL (60-115)
[2021-11-24 19:21] VITALS: BP 116/73; PULSE 98; RESP 16; TEMP 36; O2SAT 99
[2021-11-24 19:45] LABS: Glucose, Whole Blood 450 mg/dL (60-115)
[2021-11-24] MEDS: Pravastatin Sodium 20 MG TABLET PO (20:28)
[2021-11-24 23:30] VITALS: BP 134/78; PULSE 98; RESP 17; TEMP 36.3; O2SAT 99
[2021-11-25 03:19] VITALS: BP 137/83; PULSE 83; RESP 16; TEMP 36.1; O2SAT 100
[2021-11-25] MEDS: Levothyroxine Sodium 75 MCG TABLET PO (05:08)
[2021-11-25 05:14] LABS: Glucose, Whole Blood 95 mg/dL (60-115)
[2021-11-25 07:09] LABS: Glucose, Whole Blood 154 mg/dL (60-115)
[2021-11-25 07:46] VITALS: BP 144/78; PULSE 107; RESP 18; TEMP 36.6; O2SAT 98
[2021-11-25] MEDS: Insulin Glargine,Hum.rec.anlog 100 UNIT/ML 10 ML VIAL 25 UNIT SUBCUT (08:06)
[2021-11-25] MEDS: Insulin Lispro 100 UNIT/ML 3 ML VIAL SUBCUT ×2 (08:06→11:32)
[2021-11-25] MEDS: Donepezil HCl 5 MG TABLET PO (08:08)
[2021-11-25] MEDS: 0.9 % Sodium Chloride Flush 3 ML SYRINGE IVFLUSH (08:08)
[2021-11-25] MEDS: Apixaban 5 MG TABLET PO (08:08)
[2021-11-25] MEDS: dilTIAZem HCL CD 180 MG CAP.ER.24H PO (08:08)
[2021-11-25] MEDS: Escitalopram Oxalate 20 MG TABLET PO (08:08)
[2021-11-25] MEDS: Metoprolol Succinate ER 25 MG TAB.ER.24H PO (08:08)
[2021-11-25] MEDS: Metoprolol Succinate ER 12.5 MG HALFTAB.ER.24H PO (08:08)
[2021-11-25] MEDS: predniSONE 20 MG TABLET 40 MG PO (08:08)
[2021-11-25 09:00] VITALS: BP 144/78; PULSE 107; O2SAT 98
--- NOTE | 2021-11-25 09:44 | MHC.CLN ---
NUTRITION CONSULT RECEIVED FOR SKIN WHEN PATIENT IN ED. PATIENT WITH CHRONIC LEFT FOOT VENOUS STASIS ULCER. APPEARS TO E EATING WELL. DIET=DIABETIC 2200 KCAL; SUPPLEMENT GLUCERNA TID. DIET/SUPPLEMENT APPROPRIATE AND NO ADDITIONAL NUTRITION INTERVENTIONS.
[2021-11-25 11:20] LABS: Glucose, Whole Blood 190 mg/dL (60-115)
[2021-11-25 11:32] VITALS: BP 109/53; PULSE 89; RESP 16; TEMP 36.6; O2SAT 100
[2021-11-25 12:38] LABS: Influenza A PCR NEGATIVE (Negative); Influenza B PCR NEGATIVE (Negative); Resp Syncy Virus RNA Qual PCR NEGATIVE (Negative); SARS COV2 PCR INHOUSE NEGATIVE (Negative)
--- NOTE | 2021-11-25 14:22 | P.DS_ITS ---
DS: Providers Provider Date of Service: 11/25/21 Date of admission: 11/22/21 04:07 Primary care physician: Katie Rocha MD DS: Diagnosis Discharge Diagnosis (1) Acute hyperglycemia: Status: Acute (2) Acidosis, lactic: Status: Acute DS: Summary Hospital Course Hospital Course: Chief Complaint: Hyperglycemia 81-year-old male with a past medical history of hypertension, hyperlipidemia, diabetes, AFib on Eliquis, CHF, peripheral vascular disease, recent admission to the [facility] with Pseudomonas bacteremia; discharged to the rehab on 11/20/21; presented to the hospital from the rehab today with a chief complaint of elevated blood sugars.? Patient denies any polyuria or polydipsia.? Reports he is feeling hungry.? Mentions that he was recently diagnosed with giant cell arteritis and has been on prednisone taper.? Patient denies any chest pain palpitations lightheadedness or dizziness.? Denies any fever chills cough.? Denies any leg swelling.? Mentions is has leg ulcer noted during the admission at the [facility] but seems to be improving.? Spoke to the patient's daughter and patient's as well.? Review of all other systems is negative except mentioned above ER course: Per ER team patient on presentation noted to have elevated fingerstick glucose in 500s; not in DKA; given 3 L of IV fluids and lispro as well as Lantus.? Also noted to have elevated lactate.? Given recent infection with Pseudomonas bacteremia patient was empirically covered with cefepime.? Admitted to the hospital for further management Hospital course 81-year-old male with a past medical history of hypertension, hyperlipidemia, diabetes, AFib on Eliquis, CHF, peripheral vascular disease, recent admission to the [facility] with Pseudomonas bacteremia; discharged to the rehab on 11/20/21; presented to the hospital from the rehab today with a chief complaint of elevated blood sugars.? Hyperglycemia with history of diabetes mellitus on insulin Admitted with blood sugars of 605 on admission, no evidence of DKA or electrolyte abnormality, hyperglycemia likely due to prednisone 40 mg daily and underlying recent infection and question dietary indiscretion, no new infection was found, patient was empirically started on IV Cipro find that was later discontinued, since blood cultures x2 were negative patient had no fevers leukocytosis likely due to high-dose steroids. Patient was continued on Lantus 42 units at a.m. and insulin sliding scale patient noted to have low blood sugar at a.m. and high blood sugars at lunch and dinner, therefore dose of Lantus reduced to 35 units, patient continued on insulin sliding scale, snack was added at night, and patient also placed on Glucerna for low albumin, currently blood sugars are stable, patient is tolerating diet no nausea no vomiting or diarrhea, recommend to continue Close blood sugar monitoring, blood sugar fluctuates likely depending on patient's by mouth intake. Recent Pseudomonas Bacteremia/Foot Ulcer: Patient finished 8 day course of antibiotics at [facility] and was not discharged on further antibiotics,Foot ulcer is well healed,Was Noted to have mild lactic acidosis and leukocytosis likely due to dehydration and use of steroids,Blood cultures x2 negative, no fevers was placed on empiric cefepime that is now discontinued,Continue dry dressing left foot/recommend outpatient follow-up with Podiatry for treatment of left foot callus. Gain cell arteritis:? On tapering dose of prednisone currently on 40 mg by mouth daily, spoke with family and recommend close outpatient follow-up with Rheumatology as outpatient PVD:?left leg angiogram was done at [facility] underwent angioplasty of left superficial femoral and left common iliac artery on 11/18? continue on eliquis. Afib:?c/w metoprolol/Diltiazem/eliquis History of diastolic CHF:? No acute exacerbation?recent Echo- Grade 1 diastolic dysfunction, EF 55%, patient was recently started on Lasix 20 mg daily at [facility] likely went into CHF due to atrial fibrillation currently appears euvolemic will discontinue Lasix and follow clinical course since patient noted to have soft blood pressures and currently euvolemic DVT prophylaxis:? on Eliquis Time Spent with Patient Time attestation: Total time spent providing and/or coordinating discharge services: Discharge coordination time: Greater than 30 minutes Quality: Safe Use of Opioids Does Pt have an Active Cancer Diagnosis on the Problem List?: No Quality: Stroke Does the patient have a stroke diagnosis?: No Physical Exam Vital Signs: Vital Signs: Last Vital Signs Temp 97.9 F 11/25/21 11:32 Pulse 89 11/25/21 11:32 Resp 16 11/25/21 11:32 BP 109/53 L 11/25/21 11:32 Pulse Ox 100 11/25/21 11:32 O2 Del Method 11/25/21 11:32 BMI result Body Mass Index 21.6 Const: Other: General awake alert x3, in no acute distress.? Neck? no JVD. CVS? regular rate rhythm, Respiratory lungs clear to auscultation, no respiratory distress, no wheeze, no rhonchi. Gastrointestinal abdomen soft, nontender, bowel sounds audible, no guarding , no rigidity. Extremities left leg superficial abrasions dorsum of foot medially, wound lateral margin of left leg well-healed with no surrounding redness or tenderness, callus left foot, no swelling, no redness Neuro nonfocal . Skin no rash Psych appropriate affect DS: Data Data Completed and Pending Labs on day of discharge: Laboratory Results - last 24 hr 11/24/21 11/24/21 11/25/21 16:36 19:31 05:11 POC Glucose 372 H* 450 H* 95 Influenza Type A (PCR) Influenza Type B (PCR) RSV RNA Qual (PCR) SARS-CoV-2 RNA (RT-PCR) 11/25/21 11/25/21 11/25/21 07:03 11:16 11:40 POC Glucose 154 H 190 H Influenza Type A (PCR) NEGATIVE Influenza Type B (PCR) NEGATIVE RSV RNA Qual (PCR) NEGATIVE SARS-CoV-2 RNA (RT-PCR) NEGATIVE Preliminary micro results at discharge 11/21/21 22:15 Blood Culture - Preliminary Blood - Venous No growth after 48 hours. 11/21/21 21:45 Blood Culture - Preliminary Blood - Venous No growth after 48 hours. Discharge Plan Discharge Patient Disposition: [facility] Discharge Diagnosis: Hyperglycemia Lactic acidosis Left foot ulcers due to peripheral vascular disease Recent Pseudomonas bacteremia Referrals: Filipe Andujar [Outside] - 1 Week Katie Rocha MD [Primary Care Provider] - 1 Week Discharge Medications: New insulin lispro [Humalog U-100 Insulin] 100 unit/mL Solution See Protocol subcut QIDACHS Qty: 10 0RF Protocol: Insulin Correction Scale Less than or equal to 110 ---- Give (units): 0 111 to 150 Give (units): 0 151 to 200 Give (units): 4 201 to 250 Give (units): 6 251 to 300 Give (units): 8 301 to 350 Give (units): 10 Greater than 350 Give (units): 12 Call MD if Blood Glucose > : 350 Continued diltiazem HCl [Cardizem CD] 180 mg Capsule,Extended Release 24hr 180 mg PO QAM donepezil 5 mg tablet 1 tab PO BEDTIME citalopram 40 mg tablet 1 tab PO DAILY prednisone 20 mg Tablet 40 mg PO DAILY levothyroxine 75 mcg Tablet 75 mcg PO DAILY metoprolol succinate 25 mg Tablet Extended Release 24 Hr 37.5 mg PO DAILY Eliquis 5 mg tablet 1 tab PO BID pravastatin 20 mg tablet 1 tab PO BEDTIME Changed insulin glargine [Lantus Solostar U-100 Insulin] 100 unit/mL (3 mL) insulin pen 35 unit subcut DAILY@0800 Qty: 15 0RF Discontinued furosemide 20 mg Tablet 20 mg PO DAILY insulin lispro [Humalog KwikPen Insulin] 100 unit/mL Insulin Pen 1 sliding scale dose SUBCUT USEASDIRECTD Rx Instructions: 200-250: 2 UNITS, 251-300: 4 UNITS. 301-350: 6 UNITS, 351-400: 8 UNITS, Call MD if less than 70 or >400 Discharge Orders: Discharge Order (Routine); Ordered 11/25/21 Ordered By: Didi Domingo Diet: Diabetic diet Activity on Discharge: As tolerated Stand Alone Forms: Patient Portal Discharge page Care Plan Goals: Hyperglycemia, noted to have fluctuating blood sugars low in the morning and high at lunch and dinner, likely related to food intake and prednisone, dose of Lantus reduced to 32 units at a.m. and sliding scale adjusted Recommend Glucerna for low albumin Lasix discontinued since noted to be dehydrated on admission Health Concerns: Resume all other home medication Plan of Treatment: Outpatient follow-up with primary care physician, podiatry and Rheumatology Assessment: Per discharge summary
--- NOTE | 2021-11-25 14:25 | MHC.CM.PN ---
LEANAZoran MYLESKaren HAS RECEIVED INSURANCE AUTH FOR THIS PT PTS DAUGHTER NOTIFIED VIA T/C BLS TRANSPORT SET FOR 1600 HOURS WITH [facility]
[2021-11-25 15:32] VITALS: BP 107/56; PULSE 66; RESP 18; TEMP 36.8; O2SAT 99
[2021-11-25 16:07] LABS: Glucose, Whole Blood 243 mg/dL (60-115)
== END 2021-11-25 16:39 | disposition skilled nursing facility (03) ==
LOC: HO.ED 11-22 01:23 → HO.EDOVER 11-22 07:28 → HO.S3 11-22 20:03
PROVIDERS: Admitting Provider Hospitalist; Emergency Provider Internal Medicine; PCP Internal Medicine; Visit Provider Hospitalist
DX: E11.65 Type 2 diabetes mellitus with hyperglycemia (principal); E87.2 Acidosis; I83.025 Varicose veins of left lower extremity with ulcer other part of foot; L97.529 Non-pressure chronic ulcer of other part of left foot with unspecified severity; I73.9 Peripheral vascular disease, unspecified; D72.829 Elevated white blood cell count, unspecified; M31.6 Other giant cell arteritis; L84 Corns and callosities; I11.0 Hypertensive heart disease with heart failure; I50.33 Acute on chronic diastolic (congestive) heart failure; E78.5 Hyperlipidemia, unspecified; I48.91 Unspecified atrial fibrillation; F03.90 Unspecified dementia, unspecified severity, without behavioral disturbance, psychotic disturbance, mood disturbance, and anxiety; E03.9 Hypothyroidism, unspecified; Z86.19 Personal history of other infectious and parasitic diseases; Z86.73 Personal history of transient ischemic attack (TIA), and cerebral infarction without residual deficits; Z20.822 Contact with and (suspected) exposure to COVID-19; Z79.4 Long term (current) use of insulin; Z79.01 Long term (current) use of anticoagulants; Z79.52 Long term (current) use of systemic steroids; Z79.899 Other long term (current) drug therapy; Z79.02 Long term (current) use of antithrombotics/antiplatelets
CPT/HCPCS: 0241U; 36415; 71045; 73600; 80048; 80053; 81001; 82009; 82947; 83605; 85025; 87040; 87635; 93005; 96361; 96365; 96366; 97162; 99218; 99285; J0692; J2543

== ENCOUNTER → 2022-04-23 07:59 | Outpatient (BNVA) | payer MEDICARE, SELFPAY | PROVIDERS: PCP Internal Medicine; Visit Provider Psychiatry & Neurology Neurology | DX: R53.1 Weakness (principal); R13.10 Dysphagia, unspecified; R26.9 Unspecified abnormalities of gait and mobility; G25.0 Essential tremor; G25.2 Other specified forms of tremor | CPT/HCPCS: 99202 ==